=== PATIENT | female | born 1995 | race Caucasian/White ===

== ENCOUNTER 2017-01-13 11:39 | Emergency (ER) | payer OTHER ==
[~2017-01-13] VITALS: Ht 157.5 cm; Wt 80.3 kg
[~2017-01-13 11:39] MED LIST: BACTRIM,SEPT1 TABLET PO; CLONAZEPAM0.5 MG PO; HYCODAN SYRUP480 ML PO; KEFLEX500 MG PO; MOTRIN600 MG PO; MOTRIN800 MG PO; PREDNISONE10 MG PO; ULTRAM50 MG PO; ZITHROMAX Z-PA250 MG PO
[2017-01-13] MEDS ORDERED: NAPROXEN500 MG PO (12:37)
[2017-01-13 14:17] VITALS: BP 126/76
== END 2017-01-13 14:17 | disposition home or self-care (01) ==
LOC: EME 11:39
PROC: 2W3DX1Z Immobilization of Left Lower Arm using Splint (ICD-10-PCS; principal; 2017-01-13)
DX: S63.502A Unspecified sprain of left wrist, initial encounter (principal); X50.0XXA Overexertion from strenuous movement or load, initial encounter; Y92.59 Other trade areas as the place of occurrence of the external cause; Y99.0 Civilian activity done for income or pay; J45.909 Unspecified asthma, uncomplicated
CPT/HCPCS: 73110; J1885

== ENCOUNTER 2017-04-06 08:18 | Emergency (ER) | payer OTHER ==
[~2017-04-06] VITALS: Ht 157.5 cm; Wt 81.1 kg
[~2017-04-06 08:18] MED LIST changes: +NAPROXEN500 MG PO
[2017-04-06 10:24] LABS: BASOPHIL (%) 0.5 % (0-1); BASOPHIL COUNT 0.1 K/uL (0-0.1); EOSINOPHIL COUNT 0.1 K/uL (0-0.3); HEMATOCRIT 37.9 % (36.0-46.0); HEMOGLOBIN 13.5 G/DL (11.9-15.5); IMMATURE GRANULOCYTE (%) 0.2 % (0.0-0.7); LYMPHOCYTE (%) 24.1 % (15-42); LYMPHOCYTE COUNT 2.2 K/uL (1.0-2.8); MCH 31.2 PG (29.0-34.0); MCHC 35.6 G/DL (30.0-36.0); MCV 87.5 FL (83-99); MONOCYTE (%) 7.5 % (3-12); MONOCYTE COUNT 0.7 K/uL (0-0.8); NEUTROPHIL (%) 66.7 % (45-76); NEUTROPHIL COUNT 6.1 K/uL (1.8-6.4); PLATELET COUNT 242 K/uL (156-360); RBC DIS.WIDTH-CV 11.3 % (11.8-14.6); RBC DIS.WIDTH-SD 36.4 % (39-53); RED BLOOD COUNT 4.33 M/uL (3.80-5.20); WHITE BLOOD COUNT 9.1 K/uL (4.1-10.2)
[2017-04-06 10:52] LABS: ALBUMIN 4.1 g/dL (3.2-4.8); CHLORIDE 105 mEq/L (99-109); POTASSIUM 4.1 mEq/L (3.7-5.4); SODIUM 136 mEq/L (136-147)
[2017-04-06 10:54] LABS: GLUCOSE 87 mg/dL (70-99)
[2017-04-06 10:55] LABS: TOTAL PROTEIN 6.9 g/dL (6.4-8.3)
[2017-04-06 10:56] LABS: TOTAL BILIRUBIN 0.3 mg/dL (0.0-1.0)
[2017-04-06 10:58] LABS: ALKALINE PHOSPHATASE 72 IU/L (3-129); CREATININE 0.8 mg/dL (0.6-1.3); GFR ESTIMATE (CALCULATED) > 59 mL/min/
[2017-04-06 10:59] LABS: BILIRUBIN NEGATIVE; BLOOD NEGATIVE; COLOR YELLOW ((YELLOW)); GLUCOSE (STRIP) NEGATIVE; KETONES NEGATIVE; LEUKOCYTES SMALL; NITRITE NEGATIVE; PROTEIN (STRIP) NEGATIVE; UROBILINOGEN 0.2 MG/DL (0.2-1.0)
[2017-04-06 10:59] LABS: UREA NITROGEN (BUN) 12 mg/dL (9-23)
[2017-04-06 11:00] LABS: APPEARANCE SL.HAZY ((CLEAR))
[2017-04-06 11:00] LABS: AST (GOT) 20 IU/L (2-34)
[2017-04-06 11:01] LABS: ALT (GPT) 25 IU/L (3-49)
[2017-04-06 11:02] LABS: LIPASE 22 U/L (1.0-51.0)
[2017-04-06 11:08] LABS: QUANTITATIVE HCG < 4.0 MIU/ML
[2017-04-06 11:10] LABS: BACTERIA RARE /HPF; EPITHELIAL CELLS 1+ /HPF; MUCUS TRACE /LPF; RED BLOOD CELLS 0-5 /HPF (0-5); UCUL ADDED? YES
[2017-04-06] MEDS ORDERED: CIPRO500 MG PO (13:09)
[2017-04-06 13:27] VITALS: BP 120/70
== END 2017-04-06 13:28 | disposition home or self-care (01) ==
LOC: EME 08:18
PROVIDERS: Physician Assistant
DX: N39.0 Urinary tract infection, site not specified (principal)
CPT/HCPCS: 74177; 80053; 81003; 83690; 84702; 85025; 87086; 87493; 99281; 99284; J7120

== ENCOUNTER 2017-05-14 11:02 | Emergency (ER) | payer OTHER ==
[~2017-05-14] VITALS: Ht 160 cm; Wt 80.6 kg
[~2017-05-14 11:02] MED LIST changes: +CIPRO500 MG PO
[2017-05-14] MEDS ORDERED: ZOFRAN ODT4 MG PO (12:32)
[2017-05-14] MEDS ORDERED: NAPROSYN500 MG PO (12:32)
[2017-05-14 12:42] VITALS: BP 123/72
== END 2017-05-14 12:42 | disposition home or self-care (01) ==
LOC: EME 11:02
DX: S00.03XA Contusion of scalp, initial encounter (principal); F07.81 Postconcussional syndrome; W06.XXXA Fall from bed, initial encounter
CPT/HCPCS: 99281; 99283

== ENCOUNTER 2017-09-03 10:56 | Emergency (ER) | payer OTHER ==
[~2017-09-03] VITALS: Ht 157.5 cm; Wt 81.7 kg
[~2017-09-03 10:56] MED LIST changes: +NAPROSYN500 MG PO; +ZOFRAN ODT4 MG PO
[2017-09-03 12:32] LABS: HEMATOCRIT 40.1 % (36.0-46.0); HEMOGLOBIN 14.2 G/DL (11.9-15.5); MCH 31.2 PG (29.0-34.0); MCHC 35.4 G/DL (30.0-36.0); MCV 88.1 FL (83-99); PLATELET COUNT 265 K/uL (156-360); RBC DIS.WIDTH-CV 11.1 % (11.8-14.6); RBC DIS.WIDTH-SD 35.6 % (39-53); RED BLOOD COUNT 4.55 M/uL (3.80-5.20); WHITE BLOOD COUNT 9.2 K/uL (4.1-10.2)
[2017-09-03 12:39] LABS: CHLORIDE 104 mEq/L (99-109); POTASSIUM 4.1 mEq/L (3.7-5.4); SODIUM 135 mEq/L (136-147)
[2017-09-03 12:40] LABS: GLUCOSE 90 mg/dL (70-99)
[2017-09-03 12:41] LABS: D-DIMER ELISA < 150.00 ng/mLDDU (<230)
[2017-09-03 12:44] LABS: CREATININE 0.7 mg/dL (0.6-1.3); GFR ESTIMATE (CALCULATED) > 59 mL/min/
[2017-09-03 12:45] LABS: UREA NITROGEN (BUN) 12 mg/dL (9-23)
[2017-09-03 12:52] LABS: QUANTITATIVE HCG < 4.0 MIU/ML
[2017-09-03 13:39] LABS: APPEARANCE SL.HAZY ((CLEAR)); BILIRUBIN NEGATIVE; BLOOD NEGATIVE; COLOR YELLOW ((YELLOW)); GLUCOSE (STRIP) NEGATIVE; KETONES NEGATIVE; LEUKOCYTES LARGE; NITRITE NEGATIVE; PROTEIN (STRIP) NEGATIVE; SPECIFIC GRAVITY 1.013 (1.000-1.030); UROBILINOGEN 0.2 MG/DL (0.2-1.0)
[2017-09-03 13:42] LABS: BACTERIA RARE /HPF; EPITHELIAL CELLS 2+ /HPF; MUCUS TRACE /LPF; RED BLOOD CELLS 0-5 /HPF (0-5); UCUL ADDED? YES; WHITE BLOOD CELLS 20-30 /HPF (0-5)
[2017-09-03 14:05] VITALS: BP 118/78
[2017-09-03] MEDS ORDERED: VENTOLIN HFA18 GM IH (14:05)
[2017-09-03] MEDS ORDERED: TESSALON PERLE100 MG PO (14:05)
== END 2017-09-03 14:05 | disposition home or self-care (01) ==
LOC: EME 10:56
PROVIDERS: Physician Assistant Medical
DX: R04.2 Hemoptysis (principal); J06.9 Acute upper respiratory infection, unspecified
CPT/HCPCS: 71046; 80048; 81003; 84702; 85027; 85379; 87086; 94640; 99281; 99284